=== PATIENT | male | born 1980 | race African-American/Black ===

== ENCOUNTER 2016-08-09 09:29 | Emergency (ER) | payer BC, MEDICAID ==
[2016-08-09 09:36] VITALS: BP 120/77
[2016-08-09] MEDS ORDERED: IBUPROFEN 600 MG TABLET PO ONE (10:02)
--- NOTE | 2016-08-09 10:03 | ER Document Report ---
ED Extremity Problem, Lower - General Chief Complaint: Toe Injury Stated Complaint: TOE PAIN Notes: The patient is a 35-year-old male who presents with 1 day of right great toe pain after he dropped a piece of wood on his toe last night. He is able to walk and denies numbness, tingling or open wounds. TRAVEL OUTSIDE OF THE [place] IN LAST 30 DAYS: No - Related Data Allergies/Adverse Reactions: No Known Allergies Allergy (Verified 08/09/16 09:34) Past Medical History - General Information source: Patient - Social History Smoking Status: Never Smoker Chew tobacco use (# tins/day): No Frequency of alcohol use: None Drug Abuse: None Family History: Reviewed & Not Pertinent Patient has suicidal ideation: No Patient has homicidal ideation: No Pulmonary Medical History: Reports: Hx Asthma Renal/ Medical History: Denies: Hx Peritoneal Dialysis - Immunizations Hx Diphtheria, Pertussis, Tetanus Vaccination: Yes Review of Systems - Review of Systems Notes: REVIEW OF SYSTEMS: CONSTITUTIONAL: -fevers, -chills EENT: -eye pain, -difficulty swallowing, -nasal congestion CARDIOVASCULAR:-chest pain, -syncope. RESPIRATORY: -cough, -SOB GASTROINTESTINAL: -abdominal pain, - nausea, -vomiting, -diarrhea GENITOURINARY: -dysuria, -hematuria MUSCULOSKELETAL: -back pain, -neck pain, +right 1st toe pain SKIN: -rash or skin lesions. HEMATOLOGIC: -easy bruising or bleeding. LYMPHATIC: -swollen, enlarged glands. NEUROLOGICAL: -altered mental status or loss of consciousness, -headache, - neurologic symptoms PSYCHIATRIC: -anxiety, -depression. ALL OTHER SYSTEMS REVIEWED AND NEGATIVE. Physical Exam - Vital signs Vitals: Temp Pulse Resp BP Pulse Ox 98.1 F 69 20 120/77 98 08/09/16 09:34 08/09/16 09:34 08/09/16 09:34 08/09/16 09:34 08/09/16 09:34 - Notes Notes: PHYSICAL EXAMINATION: GENERAL: Well-appearing, well-nourished and in no acute distress. HEAD: Atraumatic, normocephalic. EYES: Pupils equal round and reactive to light, extraocular movements intact, sclera anicteric, conjunctiva are normal. ENT: nares patent, oropharynx clear without exudates. Moist mucous membranes. NECK: Normal range of motion, supple without lymphadenopathy LUNGS: Breath sounds clear to auscultation bilaterally and equal. No wheezes rales or rhonchi. HEART: Regular rate and rhythm without murmurs ABDOMEN: Soft, nontender, normoactive bowel sounds. No guarding, no rebound. No masses appreciated. EXTREMITIES: Swelling and mild tenderness of right great toe, brisk capillary refill. Normal range of motion. No cyanosis. NEUROLOGICAL: Cranial nerves grossly intact. Normal speech, normal gait. Normal sensory, motor, and reflex exams. PSYCH: Normal mood, normal affect. SKIN: Warm, Dry, normal turgor, no rashes or lesions noted. Course - Re-evaluation Re-evalutation: Patient with small nondisplaced proximal intra-articular right great toe fracture on x-ray. Neurovascularly intact distally. Instructed patient to continue ice and anti-inflammatories with follow-up at orthopedics. - Vital Signs Vital signs: Temp Pulse Resp BP Pulse Ox 98.1 F 69 20 120/77 98 08/09/16 09:34 08/09/16 09:34 08/09/16 09:34 08/09/16 09:34 08/09/16 09:34 - Diagnostic Test Radiology reviewed: Image reviewed, Reports reviewed Radiology results interpreted by me: Right foot x-ray: Small nondisplaced intra-articular fracture of the right great toe. Discharge - Discharge Clinical Impression: Contusion of toe of right foot Qualifiers: Encounter type: initial encounter Toe: great toe Damage to nail status: without damage Qualified Code(s): S90.111A - Contusion of right great toe without damage to nail, initial encounter Toe fracture, right Qualifiers: Encounter type: initial encounter Toe: great toe Fracture type: closed Phalanx : proximal Fracture alignment: nondisplaced Qualified Code(s): S92.414A - Nondisplaced fracture of proximal phalanx of right great toe, initial encounter for closed fracture Condition: Good Disposition: HOME, SELF-CARE Additional Instructions: Take Motrin every 6 hours or Naprosyn every 12 hours to help with your toe pain and swelling. Contusion Your injury has resulted in a contusion -- a crushing of the deep tissues. No injury to important structures was detected during the physician's exam. Contusions vary in the amount of pain they cause, and in the length of time required for healing. Typically, the area will become bruised, and will remain painful to touch for two or three weeks. However, most patients are back to working and playing within a few days. After the initial period of rest and cold-packs, your symptoms (together with the doctor's recommendations) will determine how rapidly you can get back to full activity. Usually this means "do what feels okay, but don't do things that hurt." If re-examination was recommended, it's important to follow up as instructed. Call the doctor or return any time if pain increases, if swelling becomes severe, if you develop numbness or weakness in an injured extremity, or if any other alarming symptoms occur. Forms: Return to Work Referrals: EUFEMIA MI MD [ACTIVE STAFF] - Follow up as needed
== END 2016-08-09 10:28 | disposition home or self-care (01) ==
LOC: ER 09:29
DX: S92.414A Nondisplaced fracture of proximal phalanx of right great toe, initial encounter for closed fracture (principal); W20.8XXA Other cause of strike by thrown, projected or falling object, initial encounter; Y92.009 Unspecified place in unspecified non-institutional (private) residence as the place of occurrence of the external cause; J45.909 Unspecified asthma, uncomplicated
CPT/HCPCS: 99283

== ENCOUNTER 2017-07-06 18:19 | Emergency (ER) | payer BC, MEDICAID ==
[2017-07-06 18:24] VITALS: BP 123/87
--- NOTE | 2017-07-06 19:32 | ER Document Report ---
ED General - General Chief Complaint: Breathing Difficulty Stated Complaint: DIFFICULTY BREATHING Time Seen by Provider: 07/06/17 19:21 Mode of Arrival: Ambulatory Information source: Patient TRAVEL OUTSIDE OF THE [place] IN LAST 30 DAYS: No - HPI Notes: 36 yr old male presents with wheezing x 2 days. hx of asthma. is not taking loratadine as was directed.denies any cp, sob, n/v/d, abd pain, dysuria and hematuria. no otc meds tried. denies fevers and chills. eating and drinking ok. dry cough. denies any rashes. wheezing is becoming worse, lost inhaler. nothing makes better, states non-smoker. Patient states he ran out of his inhaler. Reports he has allergies which are seasonal but does not take any medications for has not seen a primary care provider in a year. - Related Data Allergies/Adverse Reactions: No Known Allergies Allergy (Verified 07/06/17 18:20) Past Medical History - General Information source: Patient - Social History Smoking Status: Current Every Day Smoker Family History: Reviewed & Not Pertinent Pulmonary Medical History: Reports: Hx Asthma Renal/ Medical History: Denies: Hx Peritoneal Dialysis - Immunizations Hx Diphtheria, Pertussis, Tetanus Vaccination: Yes Review of Systems - Review of Systems Constitutional: No symptoms reported EENT: No symptoms reported Cardiovascular: No symptoms reported Respiratory: See HPI Gastrointestinal: No symptoms reported Genitourinary: No symptoms reported Male Genitourinary: No symptoms reported Musculoskeletal: No symptoms reported Skin: No symptoms reported Hematologic/Lymphatic: No symptoms reported Neurological/Psychological: No symptoms reported Physical Exam - Vital signs Vitals: Temp Pulse Resp BP Pulse Ox 98.7 F 76 14 123/87 H 95 07/06/17 18:22 07/06/17 18:22 07/06/17 18:22 07/06/17 18:22 07/06/17 18:22 - Notes Notes: PHYSICAL EXAMINATION: GENERAL: Well-appearing, well-nourished and in no acute distress. HEAD: Atraumatic, normocephalic. EYES: Pupils equal round and reactive to light, extraocular movements intact, sclera anicteric, conjunctiva are normal. ENT: tympanic membranes are normal appearing with pearly color, normal- appearing landmarks and normal light reflex. Hearing is grossly intact. The nasal mucosa is moist. The septum is midline. There is no evidence of septal hematoma. The turbinates are without abnormality. No obvious abnormalities to the lips. The teeth are unremarkable. The gingivae are without any obvious evidence of infection. The oral mucosa is moist and pink. There are no obvious masses to the hard or soft palate. The uvula is midline. The salivary glands appear unremarkable. The tongue is midline. The posterior pharynx is without erythema or exudate. NECK: Normal range of motion, supple without lymphadenopathy LUNGS: wheezes diffusely, cleared after 3 breathing treatments. rhinorrhea, nasal congestion. HEART: Regular rate and rhythm without murmurs ABDOMEN: Soft, nontender, nondistended abdomen. No guarding, no rebound. No masses appreciated. Musculoskeletal: Normal range of motion, no pitting or edema. No cyanosis. NEUROLOGICAL: Cranial nerves grossly intact. Normal speech, normal gait. Normal sensory, motor exams PSYCH: Normal mood, normal affect. SKIN: Warm, Dry, normal turgor, no rashes or lesions noted. Course - Re-evaluation Re-evalutation: take oral prednisone as directed. use ventolin inhaler as needed. advised to return to the ER if any signs or symptoms became worse.~ Take [id number] Motrin and Tylenol as needed for any fevers or pain.~ Follow up with primary care within 1-2 days. All questions and concerns answered by this provider. Patient/family states would follow plan of care and agreed to plan of care. Patient was discharged home and off unit without incident. Please excuse any errors in this document was done by dragon dictation. - Vital Signs Vital signs: Temp Pulse Resp BP Pulse Ox 98.7 F 76 14 123/87 H 95 07/06/17 18:22 07/06/17 18:22 07/06/17 18:22 07/06/17 18:22 07/06/17 18:22 Discharge - Discharge Clinical Impression: Asthma exacerbation Qualifiers: Asthma severity: mild Asthma persistence: unspecified Qualified Code(s): J45.901 - Unspecified asthma with (acute) exacerbation Condition: Good Disposition: HOME, SELF-CARE Instructions: Asthma (OM) Prescriptions: Benzonatate [Tessalon Perle 100 mg Capsule] 100 mg PO Q8HP PRN #20 cap PRN Reason: Prednisone 20 mg PO BID #10 tablet Referrals: MAYELA SANDERS MD [COMMUNITY BASED STAFF] - Follow up in 3-5 days
[2017-07-06] MEDS: IPRATROPIUM/ALBUTEROL 0.5-2.5 MG/3 ML AMPUL NEB ONE ×2 (19:36→20:17)
[2017-07-06] MEDS: METHYLPREDNISOLONE INJ 125 MG/2 ML SDV IM ONE (20:17)
[2017-07-06] MEDS: ALBUTEROL SULFATE HFA (90 MCG/PUFF) 8 GM MDI (1 MDI/ER DISP) IH STA (20:41)
== END 2017-07-06 20:35 | disposition home or self-care (01) ==
LOC: ER 18:19
DX: J45.41 Moderate persistent asthma with (acute) exacerbation (principal); Z91.14 Patient's other noncompliance with medication regimen; F17.200 Nicotine dependence, unspecified, uncomplicated
CPT/HCPCS: 94640 ×2; 99284; 96372; J2930; J3490; J7620

== ENCOUNTER 2017-11-04 21:14 | Emergency (ER) | payer SELFPAY ==
--- NOTE | 2017-11-04 23:18 | RADIOLOGY REPORT (SQ) ---
EXAM DESCRIPTION: XR CHEST 2 VIEWS CLINICAL HISTORY: 37 years Male, wheezing COMPARISON: 4.22.16 FINDINGS: Increased lung volume, clear parenchyma, normal cardiac silhouette, and intact bony thorax. IMPRESSION: No acute cardiopulmonary findings.
[2017-11-04] MEDS ORDERED: IPRATROPIUM/ALBUTEROL 0.5-2.5 MG/3 ML AMPUL NEB ONE (23:43)
[2017-11-04] MEDS ORDERED: DEXAMETHASONE SOD PHOS INJ 10 MG/1 ML VIAL IM ONE (23:43)
[2017-11-04] MEDS ORDERED: ALBUTEROL SULFATE HFA (90 MCG/PUFF) 8 GM MDI (1 MDI/ER DISP) IH SCH (23:45)
--- NOTE | 2017-11-04 23:50 | ER Document Report ---
HPI - HPI Pain Level: 5 Notes: Patient is a 37-year-old male with a history of asthma who presents to the ED complaining of an asthma exacerbation that started today. Patient states that he usually has a Ventolin inhaler that he uses during these times, but ran out. 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 She states that he has been wheezing throughout the day. Patient states that overall his symptoms are not as bad as they were when he first arrived, but he has been waking for about 2-1/2 hours. Patient states that he would like an albuterol inhaler to go home with today as well as a work note for tomorrow. He is still eating and drinking without any difficulties. He is urinating normally and having normal bowel movements. Denies any other recent illness. Denies any drug allergies, smoking, IV drug use. Denies any headache, fever, neck pain, URI, sore throat, chest pain, palpitations, syncope, abdominal pain, nausea/vomiting/diarrhea, urinary retention, dysuria, hematuria, or rash. - ROS Systems Reviewed and Negative: Yes All other systems reviewed and negative Past Medical History - Social History Smoking Status: Never Smoker Family History: Reviewed & Not Pertinent Pulmonary Medical History: Reports: Hx Asthma Renal/ Medical History: Denies: Hx Peritoneal Dialysis - Immunizations Hx Diphtheria, Pertussis, Tetanus Vaccination: Yes Vertical Provider Document - CONSTITUTIONAL Agree With Documented VS: Yes Notes: PHYSICAL EXAMINATION: GENERAL: Well-appearing, well-nourished and in no acute distress. A&Ox4. Answers questions appropriately. HEAD: Atraumatic, normocephalic. EYES: Pupils equal round and reactive to light, extraocular movements intact, sclera anicteric, conjunctiva are normal. ENT: Nares patent and without discharge. oropharynx clear without exudates. No tonsilar hypertrophy or erythema. Moist mucous membranes. NECK: Normal range of motion, supple without lymphadenopathy LUNGS: Wheezing throughout and b/l. No retractions or labored breathing. Pt speaking in full sentences. HEART: Regular rate and rhythm without murmurs, rubs, gallops. Musculoskeletal: FROM to passive/active. Strength 5+/5. Bernabe neg. Extremities: No cyanosis, clubbing, or edema b/l. Peripheral pulses 2+. Capillary refill less than 3 seconds. NEUROLOGICAL: Cranial nerves grossly intact. Normal speech, normal gait. PSYCH: Normal mood, normal affect. SKIN: Warm, Dry, normal turgor, no rashes or lesions noted. - INFECTION CONTROL TRAVEL OUTSIDE OF THE [place] IN LAST 30 DAYS: No Course - Re-evaluation Re-evalutation: 11/04/17 23:47 duoneb and decadron ordered albuterol inhaler dispense ordered Vitals acceptable. CXR negative. No laborous breathing or retractions. 11/05/17 00:23 Patient is an afebrile, well-hydrated, 37-year-old male who presents to the ED with an acute asthma exacerbation. Vitals are acceptable. He has no significant tachycardia, tachypnea, or hypoxia. PE is otherwise unremarkable. Patient's lung sounds are now clear to auscultation bilaterally after treatment. Patient states that he is feeling much better and would like to go home. Chest x-ray was unremarkable. No other labs or imaging warranted at this time based on H&P. Patient's presentation and symptomatology is not consistent for ACS, PE, pneumothorax, pericarditis, dissection, respiratory compromise, severe dehydration, sepsis, meningitis, or other systemic emergent condition at this time. Patient is aware that his condition can change from initial presentation and he needs to monitor symptoms closely and seek medical attention for any acute changes. I did send him with an albuterol inhaler dispensed as well as a prescription for an inhaler. Recommend conservative measures for symptoms. Recheck with your PCM in 3-5 days. Return to the ED with any worsening/concerning symptoms otherwise as reviewed in discharge. Patient is in agreement. - Vital Signs Vital signs: Temp Pulse Resp BP Pulse Ox 98.3 F 71 18 114/75 95 11/04/17 21:56 11/04/17 21:56 11/04/17 21:56 11/04/17 21:56 11/04/17 21:56 Discharge - Discharge Clinical Impression: Acute asthma exacerbation Qualifiers: Asthma severity: mild Asthma persistence: intermittent Qualified Code(s): J45.21 - Mild intermittent asthma with (acute) exacerbation Condition: Stable Disposition: HOME, SELF-CARE Instructions: Asthma (OM), Inhaled Bronchodilators (OM) Additional Instructions: Avoid asthma triggers as able maintain adequate fluid intake Use inhaler as directed over the counter cold medication as needed for symptoms Humidified air may help Wash your hands regularly F/u: with your PCM in 3-5 days for a recheck Return to the ED with any fever, worsening pain, chest pain, palpitations, syncope, worsening [place], neck pain/stiffness, shortness of breath, wheezing, drooling, trouble swallowing/breathing, abdominal pain, n/v/d, rash, or worsening/concerning symptoms otherwise. Prescriptions: Albuterol Sulfate [Proair HFA Inhalation Aerosol 8.5 gm MDI] 1 - 2 puff IH Q4H PRN #1 mdi PRN Reason: Forms: Return to Work Referrals: MAE MCCLURE MD [ACTIVE STAFF] - Follow up as needed
[2017-11-05 00:47] VITALS: BP 122/87
== END 2017-11-05 00:47 | disposition home or self-care (01) ==
LOC: ER 21:14
DX: J45.21 Mild intermittent asthma with (acute) exacerbation (principal); T48.6X6A Underdosing of antiasthmatics, initial encounter; Z91.128 Patient's intentional underdosing of medication regimen for other reason; Z91.14 Patient's other noncompliance with medication regimen
CPT/HCPCS: 94640; 99284; 96372; 71046; J1100; J3490; J7620

== ENCOUNTER 2018-03-09 13:56 | Emergency (ER) | payer SELFPAY ==
[2018-03-09] MEDS ORDERED: IPRATROPIUM/ALBUTEROL 0.5-2.5 MG/3 ML AMPUL NEB ONE ×3 (15:38→15:42)
[2018-03-09] MEDS ORDERED: PREDNISONE 20 MG TABLET PO ONE (15:42)
--- NOTE | 2018-03-09 15:47 | ER Document Report ---
HPI - HPI Pain Level: 4 Notes: Patient is a 37-year-old male who presents with chief complaint of wheezing. Patient reports history of asthma as a child, states he recently traveled here to [place] from out of state and started wheezing 2 days ago. Patient denies any fever. States he is out of his albuterol. - CONSTITUTIONAL Constitutional: DENIES: Fever, Chills - RESPIRATORY Respiratory: REPORTS: Trouble Breathing Past Medical History - General Information source: Patient - Social History Smoking Status: Never Smoker Chew tobacco use (# tins/day): No Frequency of alcohol use: Rare Drug Abuse: None Family History: Reviewed & Not Pertinent Patient has suicidal ideation: No Patient has homicidal ideation: No Pulmonary Medical History: Reports: Hx Asthma Renal/ Medical History: Denies: Hx Peritoneal Dialysis - Immunizations Hx Diphtheria, Pertussis, Tetanus Vaccination: Yes Vertical Provider Document - CONSTITUTIONAL Notes: PHYSICAL EXAMINATION: GENERAL: Well-appearing, well-nourished and in no acute distress. HEAD: Atraumatic, normocephalic. EYES: Pupils equal round extraocular movements intact, conjunctiva are normal. ENT: Nares patent NECK: Normal range of motion LUNGS: No respiratory distress, inspiratory and expiratory wheezes noted bilaterally. Musculoskeletal: Normal range of motion NEUROLOGICAL: Normal speech, normal gait. PSYCH: Normal mood, normal affect. SKIN: Warm, Dry, normal turgor, no rashes or lesions noted. - INFECTION CONTROL TRAVEL OUTSIDE OF THE [place] IN LAST 30 DAYS: No Course - Re-evaluation Re-evalutation: 03/09/18 16:53 Patient's lung sounds and work of breathing are significantly improved after administration of DuoNeb x3 as well as prednisone 60 mg. Patient will be discharged home with albuterol inhaler dispense, prednisone prescription and albuterol nebulizer prescription. - Vital Signs Vital signs: Temp Pulse Resp BP Pulse Ox 98.5 F 89 16 111/82 94 03/09/18 14:02 03/09/18 14:02 03/09/18 14:02 03/09/18 14:02 03/09/18 14:02 Discharge - Discharge Clinical Impression: Shortness of breath, Cough Asthma exacerbation Qualifiers: Asthma severity: moderate Asthma persistence: unspecified Qualified Code(s): J45.901 - Unspecified asthma with (acute) exacerbation Condition: Stable Disposition: HOME, SELF-CARE Additional Instructions: Asthma You have been diagnosed as having asthma. This is a condition where there is episodic tightness in the bronchial tubes. Allergies, infections, and polluted or cold air may be contributing factors. Emergency treatment of a severe asthma attack may include adrenaline shots , or bronchodilator aerosol. You may feel lightheaded, have a decreased exercise tolerance and a rapid pulse for an hour or two. Rest and get plenty of fluids. Home treatment of asthma requires bronchodilator drugs. These can be administered by injection, inhalation, or by mouth. Antibiotics and corticosteroids may be required for some patients. You should avoid chemical fumes, dusts, pollens, and exercising in very cold or dry air. If you smoke, stop!! If you develop a fever, increased wheezing, chest pain, or severe shortness of breath, you should contact the doctor immediately. Prescriptions: Albuterol Sulfate [Proair HFA Inhalation Aerosol 8.5 gm MDI] 2 puff IH Q4H PRN # 1 mdi PRN Reason: Albuterol Sulfate [Albuterol Sulfate 5mg/1 mL] 5 mg NEB Q4 PRN #30 ml PRN Reason: Prednisone [Deltasone 20 mg Tablet] 3 tab PO DAILY 4 Days #12 tablet Forms: Return to Work
[2018-03-09] MEDS ORDERED: ALBUTEROL SULFATE HFA (90 MCG/PUFF) 8 GM MDI (1 MDI/ER DISP) IH ONE (16:32)
[2018-03-09 17:10] VITALS: BP 122/81
== END 2018-03-09 17:10 | disposition home or self-care (01) ==
LOC: ER 13:56
DX: J45.901 Unspecified asthma with (acute) exacerbation (principal)
CPT/HCPCS: 94640 ×2; 99284; J7512; J3490; J7620

== ENCOUNTER 2018-03-20 07:36 | Emergency (ER) | payer SELFPAY ==
[2018-03-20] MEDS ORDERED: IPRATROPIUM/ALBUTEROL 0.5-2.5 MG/3 ML AMPUL NEB ONE ×2 (07:58→09:02)
[2018-03-20] MEDS ORDERED: METHYLPREDNISOLONE INJ 125 MG/2 ML SDV IM ONE (08:02)
--- NOTE | 2018-03-20 08:09 | ER Document Report ---
ED General - General Chief Complaint: Shortness Of Breath Stated Complaint: SHORT OF BREATH Time Seen by Provider: 03/20/18 07:50 Mode of Arrival: Ambulatory Information source: Patient Notes: 37-year-old male with a history of asthma presents emergency department complaints of wheezing. Patient states that his wheezing started yesterday. He has been using his albuterol inhaler without much relief of symptoms. He is not currently on any steroids or antibiotics. Patient states that he does not smoke and is not on home oxygen. He denies any fever, chills, sore throat, shortness of breath, chest pain. He is having some associated rhinorrhea and a dry cough. He states that his daughter has similar symptoms. TRAVEL OUTSIDE OF THE [place] IN LAST 30 DAYS: No - HPI Onset: Yesterday Onset/Duration: Gradual Quality of pain: No pain Severity: None Pain Level: Denies Associated symptoms: None Exacerbated by: Denies Relieved by: Denies Similar symptoms previously: Yes Recently seen / treated by doctor: No - Related Data Allergies/Adverse Reactions: No Known Allergies Allergy (Verified 03/20/18 07:54) Past Medical History - General Information source: Patient - Social History Smoking Status: Never Smoker Frequency of alcohol use: None Drug Abuse: None Family History: Reviewed & Not Pertinent Patient has suicidal ideation: No Patient has homicidal ideation: No Pulmonary Medical History: Reports: Hx Asthma Renal/ Medical History: Denies: Hx Peritoneal Dialysis - Immunizations Hx Diphtheria, Pertussis, Tetanus Vaccination: Yes Review of Systems - Review of Systems Constitutional: No symptoms reported EENT: Nose discharge Cardiovascular: No symptoms reported Respiratory: Cough Gastrointestinal: No symptoms reported Genitourinary: No symptoms reported Male Genitourinary: No symptoms reported Musculoskeletal: No symptoms reported Skin: No symptoms reported Hematologic/Lymphatic: No symptoms reported Neurological/Psychological: No symptoms reported -: Yes All other systems reviewed and negative Physical Exam - Vital signs Vitals: Temp Pulse Resp BP Pulse Ox 97.7 F 71 18 129/87 H 96 03/20/18 07:40 03/20/18 07:40 03/20/18 07:40 03/20/18 07:40 03/20/18 07:40 - General Notes: PHYSICAL EXAMINATION: GENERAL: Well-appearing, well-nourished and in no acute distress. HEAD: Atraumatic, normocephalic. EYES: Pupils equal round and reactive to light, extraocular movements intact, sclera anicteric, conjunctiva are normal. ENT: Nares patent, oropharynx clear without exudates. Moist mucous membranes. NECK: Normal range of motion, supple without lymphadenopathy LUNGS: Diffuse wheezing. HEART: Regular rate and rhythm without murmurs ABDOMEN: Soft, nontender, nondistended abdomen. No guarding, no rebound. No masses appreciated. Musculoskeletal: Normal range of motion, no pitting or edema. No cyanosis. NEUROLOGICAL: Cranial nerves grossly intact. Normal speech, normal gait. Normal sensory, motor exams PSYCH: Normal mood, normal affect. SKIN: Warm, Dry, normal turgor, no rashes or lesions noted. Course - Re-evaluation Re-evalutation: 03/20/18 09:42 On reevaluation, patient states that he is feeling better. Wheezing has resolved. Patient instructed to take the medication prescribed as directed, to follow-up with his primary care physician this week, and to return to the emergency department for worsening symptoms. Patient is agreeable with the plan of care. - Vital Signs Vital signs: Temp Pulse Resp BP Pulse Ox 98.2 F 73 20 137/73 H 96 03/20/18 09:38 03/20/18 09:38 03/20/18 09:38 03/20/18 09:38 03/20/18 09:38 Discharge - Discharge Clinical Impression: Asthma Qualifiers: Asthma severity: mild Asthma persistence: intermittent Asthma complication type : with acute exacerbation Qualified Code(s): J45.21 - Mild intermittent asthma with (acute) exacerbation Condition: Good Disposition: HOME, SELF-CARE Instructions: Asthma ([facility]) Prescriptions: Prednisone [Deltasone 20 mg Tablet] 3 tab PO DAILY 5 Days #15 tablet Referrals: ROBER GARDUNO MD [ACTIVE STAFF] - Follow up as needed
--- NOTE | 2018-03-20 08:42 | RADIOLOGY REPORT (SQ) ---
EXAM DESCRIPTION: CHEST 2 VIEWS COMPLETED DATE/TIME: 03/20/2018 8:32 am REASON FOR STUDY: wheezing COMPARISON: Two-view chest 11/04/2017 EXAM PARAMETERS: NUMBER OF VIEWS: two views TECHNIQUE: Digital Frontal and Lateral radiographic views of the chest acquired. RADIATION DOSE: NA LIMITATIONS: none FINDINGS: LUNGS AND PLEURA: No opacities, masses or pneumothorax. No pleural effusion. MEDIASTINUM AND HILAR STRUCTURES: No masses or contour abnormalities. HEART AND VASCULAR STRUCTURES: Heart normal size. No evidence for failure. BONES: No acute findings. HARDWARE: None in the chest. OTHER: No other significant finding. IMPRESSION: NO ACUTE RADIOGRAPHIC FINDING IN THE CHEST. TECHNICAL DOCUMENTATION: JOB ID: [id number] [email or web address]- All Rights Reserved Reading location - IP/workstation name: [email or web address]
[2018-03-20] MEDS ORDERED: ALBUTEROL SULFATE HFA (90 MCG/PUFF) 8 GM MDI (1 MDI/ER DISP) IH ONE (09:15)
[2018-03-20 09:40] VITALS: BP 137/73
== END 2018-03-20 09:56 | disposition home or self-care (01) ==
LOC: ER 07:36
DX: J45.21 Mild intermittent asthma with (acute) exacerbation (principal); R06.02 Shortness of breath; J34.89 Other specified disorders of nose and nasal sinuses
CPT/HCPCS: 94640 ×2; 99285; 96372; 71046; J2930; J3490; J7620

== ENCOUNTER 2018-08-08 02:37 | Emergency (ER) | payer BC ==
[2018-08-08] MEDS ORDERED: IPRATROPIUM/ALBUTEROL 0.5-2.5 MG/3 ML AMPUL NEB ONE (05:23)
[2018-08-08] MEDS ORDERED: PREDNISONE 20 MG TABLET PO ONE (05:23)
[2018-08-08] MEDS: ALBUTEROL SULFATE 0.083% NEB 2.5 MG/3 ML AMPUL NEB SCH ×2 (05:33→06:08)
[2018-08-08] MEDS ORDERED: ACETAMINOPHEN 325 MG TABLET PO ONE (06:08)
[2018-08-08] MEDS ORDERED: ALBUTEROL SULFATE 0.083% NEB 2.5 MG/3 ML AMPUL NEB ONE (06:08)
[2018-08-08] MEDS ORDERED: ALBUTEROL SULFATE HFA (90 MCG/PUFF) 8 GM MDI (1 MDI/ER DISP) IH ONE (07:00)
[2018-08-08 07:12] VITALS: BP 133/78
--- NOTE | 2018-08-08 14:45 | ER Document Report ---
Entered by CARRIE LANGE SCRIBE 08/08/18 0615 Acting as scribe for:JC IGNACIO MD ED Respiratory Problem - General Chief Complaint: Breathing Difficulty Stated Complaint: BREATHING DIFFICULTY Time Seen by Provider: 08/08/18 06:01 Mode of Arrival: Ambulatory Information source: Patient Notes: Patient is a 37 year old male presenting to the emergency department complaining of multiple symptoms including wheezing, intermittent non productive cough, nausea, body aches and chills onset 2 days ago. He states his wheezing progressively worsened yesterday. Patient states he has run out of his inhaler and nebulizer and would like to receive a prescription for these. Patient states he is feeling better after receiving 2 albuterol treatments and a DuoNeb while i n the ED. He reports not receiving a flu shot this year. TRAVEL OUTSIDE OF THE [place] IN LAST 30 DAYS: No - Related Data Allergies/Adverse Reactions: No Known Allergies Allergy (Verified 03/20/18 07:54) Past Medical History - General Information source: Patient - Social History Smoking Status: Former Smoker Chew tobacco use (# tins/day): No Frequency of alcohol use: None Drug Abuse: None Family History: Reviewed & Not Pertinent Patient has suicidal ideation: No Patient has homicidal ideation: No Pulmonary Medical History: Reports: Hx Asthma - Immunizations Hx Diphtheria, Pertussis, Tetanus Vaccination: Yes Review of Systems - Review of Systems Constitutional: See HPI, Chills EENT: No symptoms reported Cardiovascular: No symptoms reported Respiratory: See HPI, Cough, Wheezing Gastrointestinal: See HPI, Nausea Genitourinary: No symptoms reported Male Genitourinary: No symptoms reported Musculoskeletal: No symptoms reported Skin: No symptoms reported Hematologic/Lymphatic: No symptoms reported Neurological/Psychological: No symptoms reported -: Yes All other systems reviewed and negative Physical Exam - Vital signs Vitals: Temp Pulse Resp BP Pulse Ox 100.1 F 95 16 123/75 98 08/08/18 02:42 08/08/18 02:42 08/08/18 02:42 08/08/18 02:42 08/08/18 02:42 - Notes Notes: GENERAL: Alert, interacts well. No acute distress. HEAD: Normocephalic, atraumatic. EYES: Pupils equal, round, and reactive to light. Extraocular movements intact. ENT: Nasal congestion. Oral mucosa moist, tongue midline. Small amount of erythema in the posterior orophraynx. TM's intact bilaterally. NECK: Full range of motion. Supple. Trachea midline. LUNGS: Actively receiving a breathing treatment. Diffuse inspiratory and expiratory wheezing. No respiratory distress. HEART: Regular rate and rhythm. No murmurs, gallops, or rubs. ABDOMEN: Soft, non-tender. Non-distended. Bowel sounds present in all 4 quadrants. No guarding, rigidity, or rebound. EXTREMITIES: Moves all 4 extremities spontaneously. NEUROLOGICAL: Alert and oriented x3. Normal speech. PSYCH: Normal affect, normal mood. SKIN: Warm, dry, normal turgor. No rashes or lesions noted. Course - Vital Signs Vital signs: Temp Pulse Resp BP Pulse Ox 99.1 F 95 20 133/78 H 93 08/08/18 07:01 08/08/18 02:42 08/08/18 07:12 08/08/18 07:01 08/08/18 07:01 Discharge - Discharge Clinical Impression: Viral upper respiratory tract infection with cough Asthmatic bronchitis Qualifiers: Asthma severity: moderate Asthma persistence: persistent Asthma complication type: with acute exacerbation Qualified Code(s): J45.41 - Moderate persistent asthma with (acute) exacerbation Disposition: HOME, SELF-CARE I personally performed the services described in the documentation, reviewed and edited the documentation which was dictated to the scribe in my presence, and it accurately records my words and actions.
== END 2018-08-08 07:17 | disposition home or self-care (01) ==
LOC: ER 02:37
DX: J45.41 Moderate persistent asthma with (acute) exacerbation (principal); T48.906A Underdosing of unspecified agents primarily acting on the respiratory system, initial encounter; Z91.128 Patient's intentional underdosing of medication regimen for other reason; Z91.14 Patient's other noncompliance with medication regimen; J06.9 Acute upper respiratory infection, unspecified; B97.89 Other viral agents as the cause of diseases classified elsewhere; R05 Cough; R11.0 Nausea; R68.83 Chills (without fever); Z87.891 Personal history of nicotine dependence
CPT/HCPCS: 94640; 99284; J7512; J3490; J7620

== ENCOUNTER 2018-11-15 04:25 | Emergency (ER) | payer BC ==
[2018-11-15] MEDS ORDERED: IPRATROPIUM/ALBUTEROL 0.5-2.5 MG/3 ML AMPUL NEB ONE (04:31)
[2018-11-15] MEDS ORDERED: PREDNISONE 20 MG TABLET PO ONE (04:31)
[2018-11-15] MEDS: ALBUTEROL SULFATE 0.083% NEB 2.5 MG/3 ML AMPUL NEB SCH ×2 (04:44→05:06)
[2018-11-15] MEDS ORDERED: ALBUTEROL SULFATE HFA (90 MCG/PUFF) 8 GM MDI (1 MDI/ER DISP) IH ONE (07:54)
--- NOTE | 2018-11-15 07:58 | ER Document Report ---
ED General - General Chief Complaint: Asthma Exacerbation Stated Complaint: DIFFICULTY BREATHING Time Seen by Provider: 11/15/18 07:39 Notes: Patient is a 38-year-old male with asthma that presents to the emergency department for chief complaint of wheezing and shortness of breath. Patient reports that his asthma flared up yesterday, he works by mowing grass, and cooks in the evening, and he is been more flared up and he ran out of his albuterol inhaler as well as his albuterol nebulizers so he came to the emergency department to be evaluated. He has been having more wheezing, slight cough, but denies fevers, chills, night sweats, chest pain, nausea, vomiting or abdominal pain, no other complaints at this time, he did receive nebulizers and prednisone in triage and is feeling much better. Past Medical History: Asthma Past Surgical History: Retinoblastoma surgery Social History: Denies tobacco, alcohol or drug use. Family History: Reviewed and noncontributory for presenting illness Allergies: Reviewed, see documented allergy list. REVIEW OF SYSTEMS: Other than noted above, the 12 point review of systems was reviewed with the patient and were negative, all pertinent findings are included in the HPI. PHYSICAL EXAMINATION: Vital signs reviewed, nursing noted reviewed. GENERAL: Well-appearing, well-nourished and in no acute distress. HEAD: Atraumatic, normocephalic. EYES: Eyes appear normal, extraocular movements intact, sclera anicteric, conjunctiva are normal. ENT: nares patent, oropharynx clear without exudates. Moist mucous membranes. NECK: Normal range of motion, supple without lymphadenopathy LUNGS: Bilateral wheezing noted throughout all lung spivey, no acute respiratory distress however. HEART: Regular rate and rhythm without murmurs ABDOMEN: Soft, nontender, normoactive bowel sounds. No rebound, guarding, or rigidity. No masses appreciated. EXTREMITIES: Nontender, good range of motion, no pitting or edema. NEUROLOGICAL: No focal neurological deficits. Moves all extremities spontaneou sly Motor and sensory grossly intact on exam. PSYCH: Normal mood, normal affect. SKIN: Warm, Dry, normal turgor, no rashes or lesions noted on exposed skin TRAVEL OUTSIDE OF THE [place] IN LAST 30 DAYS: No - Related Data Allergies/Adverse Reactions: No Known Allergies Allergy (Verified 03/20/18 07:54) Past Medical History - Social History Smoking Status: Never Smoker Chew tobacco use (# tins/day): No Drug Abuse: None Family History: Reviewed & Not Pertinent Patient has suicidal ideation: No Patient has homicidal ideation: No Pulmonary Medical History: Reports: Hx Asthma Renal/ Medical History: Denies: Hx Peritoneal Dialysis - Immunizations Hx Diphtheria, Pertussis, Tetanus Vaccination: Yes Physical Exam - Vital signs Vitals: Temp Pulse Resp BP Pulse Ox 97.9 F 72 22 H 122/94 H 99 11/15/18 04:40 11/15/18 04:40 11/15/18 04:40 11/15/18 04:40 11/15/18 04:40 Course - Re-evaluation Re-evalutation: Patient seen and examined vital signs reviewed. Patient was evaluated and treated as appropriate for the patient's presenting symptoms and complaint, with consideration of any critical or life threatening conditions that may be associated with their obtained history and exam as noted above. Patient was treated with DuoNeb breathing treatments, and prednisone The patient was re-evaluated and was stable, still having a slight wheeze, but not in any respiratory distress. Evaluation was most consistent with asthma exacerbation, will discharge home with prescription for albuterol and prednisone Plan of care was discussed with the patient at this point, after careful consideration I feel that that patient can be discharged from the emergency department, the patient was educated treatments and reasons to return to the emergency department based on their presumed diagnosis as noted above, they were advised to followup with a primary care physician in 2-3 days. Patient was agreeable to plan of care. *Note is created using voice recognition software and may contain spelling, syntax or grammatical errors. - Vital Signs Vital signs: Temp Pulse Resp BP Pulse Ox 97.9 F 72 20 122/94 H 99 11/15/18 04:40 11/15/18 04:40 11/15/18 05:16 11/15/18 04:40 11/15/18 04:40 Discharge - Discharge Clinical Impression: Acute asthma exacerbation Qualifiers: Asthma severity: unspecified severity Asthma persistence: unspecified Qualified Code(s): J45.901 - Unspecified asthma with (acute) exacerbation Condition: Stable Disposition: HOME, SELF-CARE Instructions: Asthma ([facility]) Prescriptions: Albuterol Sulfate [Ventolin 0.083% Neb 2.5 mg/3 mL Ampul] 1 vial NEB Q4 PRN #100 vial PRN Reason: shortness of breath/wheezing Albuterol Sulfate [Albuterol Sulfate Hfa] 8.5 gm IH Q4H PRN #1 inhaler PRN Reason: shortness of breath/wheezing Prednisone [Deltasone 10 mg Tablet] 50 mg PO DAILY #20 tablet Referrals: JANUARY ESPINOZA MD [[facility]UNITY BASED STAFF] - Follow up in 3-5 days (or your primary care. )
[2018-11-15 08:28] VITALS: BP 118/90
== END 2018-11-15 08:27 | disposition home or self-care (01) ==
LOC: ER 04:25
DX: J45.901 Unspecified asthma with (acute) exacerbation (principal)
CPT/HCPCS: 94640 ×2; 99284; J7512; J3490; J7620

== ENCOUNTER 2019-03-28 14:22 | Emergency (ER) | payer BC ==
[2019-03-28 14:32] VITALS: BP 126/82
[2019-03-28] MEDS ORDERED: LIDOCAINE 1% INJ-PF (10 MG/ML) 30 ML SDV INJ ONE (14:42)
--- NOTE | 2019-03-28 14:49 | ER Document Report ---
HPI - HPI Time Seen by Provider: 03/28/19 14:34 Context: Patient is a 38-year-old male who presents the emergency department with a chief complaint of left great toe drainage. He noticed that he had a symptoms about 4 days ago. Patient denies any fever, body aches, chills. He denies any pain. Patient states that there has been a foul smell to the area. - ROS Systems Reviewed and Negative: Yes All other systems reviewed and negative - CONSTITUTIONAL Constitutional: DENIES: Fever, Chills - EENT EENT: DENIES: Sore Throat - NEURO Neurology: DENIES: Headache - CARDIOVASCULAR Cardiovascular: DENIES: Chest pain - RESPIRATORY Respiratory: DENIES: Coughing - MUSCULOSKELETAL Musculoskeletal: DENIES: Extremity pain, Swelling - DERM Skin Color: Normal Skin Problems: Pustule - Medial great toe Past Medical History - General Information source: Patient - Social History Smoking Status: Never Smoker Family History: Reviewed & Not Pertinent Pulmonary Medical History: Reports: Hx Asthma Renal/ Medical History: Denies: Hx Peritoneal Dialysis - Immunizations Hx Diphtheria, Pertussis, Tetanus Vaccination: Yes Vertical Provider Document - CONSTITUTIONAL Agree With Documented VS: Yes Exam Limitations: No Limitations General Appearance: No Apparent Distress - INFECTION CONTROL TRAVEL OUTSIDE OF THE [place] IN LAST 30 DAYS: No - HEENT HEENT: Atraumatic, Normocephalic, PERRLA - RESPIRATORY Respiratory: No Respiratory Distress - CARDIOVASCULAR Cardiovascular: Regular Rate, Regular Rhythm Pulses: Normal: Radial, Posterior tibial, Dorsalis pedis - MUSCULOSKELETAL/EXTREMETIES Musculoskeletal/Extremeties: FROM, No Edema. negative: Tender - NEURO Level of Consciousness: Awake, Alert, Appropriate - DERM Integumentary: Warm, Dry, Abscess - Purulent foul-smelling drainage from left medial great toe at toenail. Course - Re-evaluation Re-evalutation: 03/28/19 16:42 Patient was unsure as to when his last tetanus vaccine was. He will be given his tetanus vaccine. A partial toe nail removal was done. Patient tolerated the procedure well. See procedure note. I have advised him to follow-up with podiatry to evaluate his toe. Follow-up precautions were given. Verbal discharge instructions were given to the patient. They verbalized understanding. They are stable for discharge. - Vital Signs Vital signs: Temp Pulse Resp BP Pulse Ox 98.4 F 63 18 126/82 H 99 03/28/19 14:29 03/28/19 14:29 03/28/19 14:29 03/28/19 14:29 03/28/19 14:29 Procedures - Nail Trephanation/Removal Left Great toe Nail Trepanation/Removal Location: Partial removal of lateral aspect Betadine prep applied: Yes Sterile Dressing Applied: Yes Finger Splint: No - Postop shoe given Discharge - Discharge Clinical Impression: Ingrown toenail of left foot with infection Condition: Stable Disposition: HOME, SELF-CARE Additional Instructions: You were seen here in the emergency department for drainage and foul odor from your left great toe. You had a partial toenail removal here in the emergency department. You are also being started on antibiotics. Please take all your antibiotics as prescribed. You are also being sent home with pain medication. Please use this sparingly. You can take ibuprofen 600 mg every 6 hours for the inflammation and swelling. Follow-up with podiatry in regards to this visit. Prescriptions: Clindamycin HCl [Cleocin 150 mg Capsule] 300 mg PO Q6 7 Days #56 capsule Hydrocodone/Acetaminophen [Linden 5-325 mg Tablet] 1 tab PO ASDIR PRN #12 tablet PRN Reason: Forms: Return to Work Referrals: VISHAL MCCOY MD [Primary Care Provider] - Follow up as needed CHADWICK LAZO DPM [ACTIVE STAFF] - Follow up in 3-5 days
[2019-03-28] MEDS ORDERED: DIPH/PERTUSS(ACELL)/TETANUS VAC/PF 0.5 ML SYR (>=10YO) IM ONE (16:32)
== END 2019-03-28 16:48 | disposition home or self-care (01) ==
LOC: ER 14:22
DX: L60.0 Ingrowing nail (principal); L08.9 Local infection of the skin and subcutaneous tissue, unspecified; Z23 Encounter for immunization
CPT/HCPCS: 99283; 90471; 90715; 11730; J3490

== ENCOUNTER 2019-08-08 08:51 | Emergency (ER) | payer BC ==
[2019-08-08 08:57] VITALS: BP 143/86
[2019-08-08] MEDS ORDERED: IPRATROPIUM/ALBUTEROL 0.5-2.5 MG/3 ML AMPUL NEB ONE (09:14)
[2019-08-08] MEDS ORDERED: PREDNISONE 20 MG TABLET PO ONE (09:14)
--- NOTE | 2019-08-08 09:20 | ER Document Report ---
HPI - HPI Patient complains to provider of: Difficulty breathing Time Seen by Provider: 08/08/19 09:10 Onset: Other - wednesday Quality of pain: No pain Pain Level: Denies Context: 38-year-old male presents emergency department with complaints of difficulty breathing with history of asthma. Reports he started with runny nose cold symptoms on Wednesday. He has been taking his asthma medication as prescribed but having little difficulty today. Denies fever vomiting diarrhea. Respiratory rate even unlabored, positive wheeze. Associated Symptoms: denies: Nonproductive cough Exacerbated by: Denies Relieved by: Denies Similar symptoms previously: Yes Recently seen / treated by doctor: No Past Medical History - General Information source: Patient - Social History Smoking Status: Former Smoker Cigarette use (# per day): No Frequency of alcohol use: None Drug Abuse: None Family History: Reviewed & Not Pertinent Patient has suicidal ideation: No Patient has homicidal ideation: No Pulmonary Medical History: Reports: Hx Asthma Renal/ Medical History: Denies: Hx Peritoneal Dialysis Malignancy Medical History: Reports Other Surgical Hx: Negative - Immunizations Hx Diphtheria, Pertussis, Tetanus Vaccination: Yes Vertical Provider Document - CONSTITUTIONAL Agree With Documented VS: Yes Exam Limitations: No Limitations General Appearance: WD/WN, No Apparent Distress - Nontoxic looking - INFECTION CONTROL TRAVEL OUTSIDE OF THE [place] IN LAST 30 DAYS: No - HEENT HEENT: Atraumatic, Normal ENT Exam, Normocephalic. negative: Conjuctival Injection, Pharyngeal Erythema, Tympanic Membrane Red - NECK Neck: Normal Inspection, Supple. negative: Lymphadenopathy-Left, Lymphadenopathy-Right - RESPIRATORY Respiratory: No Respiratory Distress - Respiratory rate even unlabored no retractions, Wheezing - CARDIOVASCULAR Cardiovascular: Regular Rate, Regular Rhythm - GI/ABDOMEN Gastrointestinal: Abdomen Soft, Abdomen Non-Tender - MUSCULOSKELETAL/EXTREMETIES Musculoskeletal/Extremeties: JOANNE ALVARADO - NEURO Level of Consciousness: Awake, Alert, Appropriate Motor/Sensory: No Motor Deficit - DERM Integumentary: Warm, Dry Course - Re-evaluation Re-evalutation: 08/08/19 13:29 Patient presents with complaints of difficulty breathing and asthma flareup. He received a DuoNeb and albuterol neb treatment here. He was treated with steroids. He reports he feels much better. Respiratory rate even unlabored no retractions. Patient was instructed to follow-up with his primary care provider for recheck and return here for any concerns difficulty breathing he verbalized understanding to all instructions. - Vital Signs Vital signs: Temp Pulse Resp BP Pulse Ox 97.6 F 64 18 143/86 H 95 08/08/19 08:56 08/08/19 08:56 08/08/19 08:56 08/08/19 08:56 08/08/19 08:56 Discharge - Discharge Clinical Impression: Difficulty breathing, Wheeze, History of asthma Condition: Stable Disposition: HOME, SELF-CARE Instructions: Asthma ([facility]), Bronchodilators ([facility]), Steroid Medication Additional Instructions: *You have been evaluated for difficulty breathing, wheeze, history of asthma *Increase fluid intake *Good handwashing *Inhaler as prescribed *Monitor your temperature, take Tylenol as indicated *Follow up with a primary care provider within 1 week for recheck *Return to ED for worsening condition, changes, needs, concerns, difficulty breathing Prescriptions: Prednisone [Deltasone 10 mg Tablet] 10 mg PO ASDIR PRN #16 tablet PRN Reason: Forms: Return to Work Referrals: VISHAL MCCOY MD [Primary Care Provider] - Follow up in 3-5 days
[2019-08-08] MEDS: ALBUTEROL SULFATE 0.083% NEB 2.5 MG/3 ML AMPUL NEB SCH ×2 (09:32→09:38)
[2019-08-08] MEDS ORDERED: ALBUTEROL SULFATE HFA (90 MCG/PUFF) 8 GM MDI IH ONE (10:29)
== END 2019-08-08 10:51 | disposition home or self-care (01) ==
LOC: ER 08:51
DX: J45.909 Unspecified asthma, uncomplicated (principal); Z79.899 Other long term (current) drug therapy; Z87.891 Personal history of nicotine dependence
CPT/HCPCS: 94640 ×2; 99284; J7512; J7620; J3490